=== PATIENT | male | born 1960 | race Caucasian/White ===

== ENCOUNTER 2016-08-07 01:55 | Emergency (ER) | payer OTHER ==
[2016-08-07 01:55] VITALS: BMI 28.5
[2016-08-07 02:17] VITALS: BP 133/80; PULSE 74; RESP 16; TEMP 98.6; O2SAT 96
[2016-08-07] MEDS ORDERED: Sodium Chloride 0.9% 1,000 ML IV STA (02:22)
--- NOTE | 2016-08-07 02:42 | ED PDOC ---
HPI: Abdomen Time Seen by Provider: 08/07/16 02:14 Chief Complaint (Nursing): Dizziness/Lightheaded History Per: Patient History/Exam Limitations: no limitations Onset/Duration Of Symptoms: Hrs (2) Outside of [place] travel?: No Current Symptoms Are (Timing): Still Present Severity: Moderate Quality Of Discomfort: "Pain" Associated Symptoms: Nausea, Vomiting. denies: Fever, Chills, Diarrhea, Loss Of Appetite, Back Pain, Chest Pain, Constipation Exacerbating Factors: None Additional History Per: Patient Additional Complaint(s): 56 y/o male without known PMHx here this evening complaining of diffuse abdominal pain, nausea, and nonbloody/nonbillious vomiting x5 for the last two hours. Patient also complains of some mild dizziness without fall or syncope. He denies diarrhea, chest pain, shortness of breath, or other complaint. Patient reports an evening meal of salsa and beer. Past Medical History Reviewed: Historical Data, Nursing Documentation, Vital Signs Vital Signs: Last Vital Signs Temp 98.6 F 08/07/16 02:15 Pulse 74 08/07/16 02:15 Resp 16 08/07/16 02:15 BP 133/80 08/07/16 02:15 Pulse Ox 96 08/07/16 03:31 - Medical History PMH: No Chronic Diseases - Surgical History Other surgeries: Right Inguinal Hernia Repair - Family History Family History: States: Unknown Family Hx - Social History Current smoker - smoking cessation education provided: No Ex-Smoker (has not smoked in the last 12 months): No Alcohol: Social Drugs: Denies - Home Medications Home Medications: Ambulatory Orders Medication Instructions Recorded Famotidine [Pepcid] 20 mg PO Q12 #14 tab 08/07/16 Ondansetron ODT [Zofran ODT] 4 mg PO Q6 PRN #16 odt 08/07/16 - Allergies Allergies/Adverse Reactions: Allergies Allergy/AdvReac Type Severity Reaction Status Date / Time No Known Allergies Allergy Verified 05/10/15 09:23 Review of Systems ROS Statement: Except As Marked, All Systems Reviewed And Found Negative Gastrointestinal: Positive for: Nausea, Vomiting, Abdominal Pain Physical Exam - Reviewed Nursing Documentation Reviewed: Yes Vital Signs Reviewed: Yes - Physical Exam Appears: Positive for: Well, Non-toxic, No Acute Distress Head Exam: Positive for: ATRAUMATIC, NORMAL INSPECTION, NORMOCEPHALIC Skin: Positive for: Normal Color, Warm, DRY Eye Exam: Positive for: EOMI, Normal appearance, PERRL ENT: Positive for: Other (slightly dry mucus membranes) Neck: Positive for: Normal, Painless ROM Cardiovascular/Chest: Positive for: Regular Rate, Rhythm Respiratory: Positive for: CNT, Normal Breath Sounds Gastrointestinal/Abdominal: Positive for: Normal Exam, Bowel Sounds, Soft Back: Positive for: Normal Inspection Extremity: Positive for: Normal ROM Neurologic/Psych: Positive for: Alert, Oriented - Laboratory Results Result Diagrams: 08/07/16 02:39 08/07/16 02:39 - ECG ECG Rhythm: Positive for: Normal QRS, Normal ST Segment, Sinus Rhythm (71). Negative for: Right Bundle Branch Block, Left Bundle Branch Block O2 Sat by Pulse Oximetry: 96 (RA) Pulse Ox Interpretation: Normal Medical Decision Making Medical Decision Making: Time: 2:43 am Impression: 56 y/o male complaining of nausea, vomiting and diarrhea. Rule out pancreatitis v. cholecystitis v. gastritis. Plan: - Labs - IVF - Pepcid and Zofran - EKG Discharge Instructions: Re-evaluation. Patient feels better. Discussed results and plan with patient who expresses understanding. Labs revealed no clinically significant findings. Counseling was provided regarding the diagnosis and prognosis. All questions answered and there is agreement with the plan to discharge home with instructions. Patient stable for discharge. Return if symptoms persist or worsen. Scribe Attestation: Documented by Brenda Fischer acting as a scribe for Ford El MD. Scribe Attestation: All medical record entries made by the Scribe were at my direction and personally dictated by me. I have reviewed the chart and agree that the record accurately reflects my personal performance of the history, physical exam, medical decision making, and the department course for this patient. I have also personally directed, reviewed, and agree with the discharge instructions and disposition. Disposition - Clinical Impression Clinical Impression: Gastritis - Disposition Referrals: [facility] [Outside] Disposition: Routine/Home Disposition Time: 02:20 Condition: STABLE Prescriptions: Famotidine [Pepcid] 20 mg PO Q12 #14 tab Ondansetron ODT [Zofran ODT] 4 mg PO Q6 PRN #16 odt PRN Reason: Nausea/Vomiting Instructions: Gastritis (ED) Print Language: [place]
[2016-08-07 02:44] LABS: BASO % 0.5 % (0.0-2.0); EOS # 0.2 K/uL (0.0-0.7); EOS % 2.2 % (0.0-4.0); HEMATOCRIT 43.7 % (35.0-51.0); LYMPH # 2.5 K/uL (1.0-4.3); LYMPH % 31.4 % (20.0-40.0); MEAN CORPUSCULAR HEMOGLOBIN 31.6 pg (27.0-31.0); MEAN CORPUSCULAR HGB CONC 33.6 g/dL (33.0-37.0); MEAN PLATELET VOLUME 7.8 fl (7.2-11.7); MONO # 0.8 K/uL (0.0-0.8); MONO % 10.7 % (0.0-10.0); NEUT # 4.3 K/uL (1.8-7.0); NEUT % 55.2 % (50.0-75.0); WHITE BLOOD COUNT 7.9 K/uL (4.8-10.8)
[2016-08-07 02:47] LABS: CHLORIDE 105 mmol/L (98-107); SODIUM 143 mmol/l (132-148)
[2016-08-07 02:48] LABS: POTASSIUM 4.2 MMOL/L (3.6-5.0)
[2016-08-07 02:50] LABS: ALB/GLOB RATIO 1.3 (1.0-2.1); ALKALINE PHOSPHATASE 103 U/L (38-126); ALT/SGPT 73 U/L (21-72); AST/SGOT 43 U/L (17-59); BILIRUBIN,TOTAL 0.6 mg/dl (0.2-1.3); BLOOD UREA NITROGEN 19 mg/dl (9-20); CARBON DIOXIDE 24 mmol/L (22-30); GFR AFRICAN-AMERICAN > 60; GLUCOSE,RANDOM 118 mg/dL (75-110); TOTAL PROTEIN 8.4 G/DL (6.3-8.2)
[2016-08-07 02:51] LABS: URINE BILIRUBIN NEGATIVE (NEGATIVE); URINE BLOOD NEGATIVE (NEGATIVE); URINE COLOR COLORLESS (YELLOW); URINE GLUCOSE (UA) NEG (Normal); URINE KETONE NEGATIVE (NEGATIVE); URINE LEUKOCYTE ESTERASE NEG Leu/uL (Negative); URINE PROTEIN NEGATIVE (NEGATIVE); URINE UROBILINOGEN 0.2-1.0 mg/dL (0.2-1.0)
[2016-08-07 02:51] LABS: ALCOHOL SERUM < 10 mg/dl (0-10); CALCIUM 9.1 mg/dL (8.4-10.2); LIPASE 123 U/L (23-300)
--- NOTE | 2016-08-07 10:55 | CARD ---
APPROVED REPORT EKG Measurement Heart [id number] <Conclusion> Normal sinus rhythm Normal ECG
== END 2016-08-07 03:42 | disposition home or self-care (01) ==
LOC: H.ER 01:55
DX: K29.70 Gastritis, unspecified, without bleeding (principal); R11.2 Nausea with vomiting, unspecified; R19.7 Diarrhea, unspecified; Z87.891 Personal history of nicotine dependence